=== PATIENT | female | born 1955 | race Hispanic/Latino ===

== ENCOUNTER 2018-05-07 12:40 | Emergency (ER) | payer MEDICAID ==
--- NOTE | 2018-05-07 14:09 | Emergency Department Report ---
ED General Adult HPI - General Chief complaint: Medical Clearance Stated complaint: G TUBE REPLACEMENT Time Seen by Provider: 05/07/18 13:04 Source: patient, EMS (ems notes not available at time of chart dictation), RN notes reviewed, old records reviewed Mode of arrival: Stretcher Limitations: Other (patient is a poor historian.) - History of Present Illness Initial comments: This is a 62-year-old female, presenting from a local [facility] to have a feeding tube replaced. As per discussion with [facility] staff, feeding tube placed either in leads 2015, or early 2016. No other documented complaints have been noted. Patient is demented and is a poor historian. She can therefore not describe exacerbating or relieving factors, radiation, or the qualitative nature of her symptoms. -: unknown Severity scale (0 -10): 0 Quality: other (per hpi) Consistency: other (per hpi) Improves with: other (per hpi) Worsens with: other (per hpi) Associated Symptoms: other (per hpi) - Related Data Allergies Allergy/AdvReac Type Severity Reaction Status Date / Time No Known Allergies Allergy Verified 05/07/18 13:06 ED Review of Systems ROS: Stated complaint: G TUBE REPLACEMENT Other details as noted in HPI Comment: Unobtainable due to pts medical conditions ED Past Medical Hx - Past Medical History Previous Medical History?: Yes Hx Psychiatric Treatment: Yes (Depression, anxiety) Hx Dementia: Yes Additional medical history: Monosymptomatic hypochondriacal psychosis. Parkinson's. chronic pain. Cognitive Dysfunction - Surgical History Past Surgical History?: Yes Additional Surgical History: PEG tube - Social History Smoking Status: Unknown if ever smoked Substance Use Type: Other ED Physical Exam - General Limitations: Other (patient is demented, and is a poor historian) General appearance: in no apparent distress - Eye Eye exam: Present: normal appearance, EOMI - ENT ENT exam: Present: normal exam, normal orophraynx, normal external ear exam - Neck Neck exam: Present: normal inspection, full ROM - Respiratory Respiratory exam: Present: normal lung sounds bilaterally. Absent: respiratory distress, wheezes, rales, rhonchi, stridor, chest wall tenderness, accessory muscle use, decreased breath sounds, prolonged expiratory - Cardiovascular Cardiovascular Exam: Present: regular rate, normal rhythm, normal heart sounds. Absent: bradycardia, tachycardia, irregular rhythm, systolic murmur, diastolic murmur, rubs, gallop - GI/Abdominal GI/Abdominal exam: Present: soft, normal bowel sounds, other (in the left upper quadrant, there is a stoma noted, with no redness, pus or streaking). Absent: distended, tenderness, guarding, rebound, rigid, pulsatile mass - Extremities Exam Extremities exam: Present: normal inspection, full ROM, normal capillary refill , other (2+ pulses noted in the bilateral upper, lower extremities). Absent: calf tenderness - Back Exam Back exam: Present: normal inspection, full ROM. Absent: paraspinal tenderness , vertebral tenderness - Neurological Exam Neurological exam: Present: alert, other (patient is demented. There is no facial droop. Moves 4 extremities spontaneously. Speaks in full sentences. Sensation intact to light touch in 4 extremities.) ED Course Vital Signs 05/07/18 05/07/18 05/07/18 12:55 13:00 13:07 Temperature 98.5 F Pulse Rate 69 Respiratory 18 Rate Blood Pressure 122/76 104/72 122/76 O2 Sat by Pulse 94 98 Oximetry 05/07/18 05/07/18 13:22 14:00 Temperature Pulse Rate Respiratory 18 Rate Blood Pressure 104/72 O2 Sat by Pulse 98 96 Oximetry - Procedure Description Procedures done: In typical aseptic fashion, the left upper quadrant skin stoma is cleansed with Betadine and then dried. An 18 [place] 6 mm feeding tube is inserted, and the balloon is insufflated with 10 mL of sterile saline. A postprocedure x-ray demonstrates appropriate placement with no obvious extravasation, and the patient tolerated the procedure well. ED Medical Decision Making - Lab Data Vital Signs 05/07/18 05/07/18 05/07/18 12:55 13:00 13:07 Temperature 98.5 F Pulse Rate 69 Respiratory 18 Rate Blood Pressure 122/76 104/72 122/76 O2 Sat by Pulse 94 98 Oximetry 05/07/18 05/07/18 13:22 14:00 Temperature Pulse Rate Respiratory 18 Rate Blood Pressure 104/72 O2 Sat by Pulse 98 96 Oximetry - Radiology Data Radiology results: report reviewed, image reviewed Post feeding tube placement x-ray demonstrates appropriate placement of the feeding tube with no obvious contrast extravasation - Medical Decision Making Differential diagnosis, including but not limited to: Feeding tube replacement, encounter for feeding tube replacement Assessment and plan: 62-year-old female who was sent here for feeding tube replacement. The feeding tube was replaced with 1 attempt, confirmed radiographically, and has no obvious complications. The patient is resting comfortably in her stretcher now, and no distress, and the remainder of her physical exam is unremarkable. She is suitable to be discharged at this time with routine outpatient and GI follow-up. The tube is suitable to be used. Critical care attestation.: If time is entered above; I have spent that time in minutes in the direct care of this critically ill patient, excluding procedure time. ED Disposition Clinical Impression: Complication of feeding tube Disposition: [id number]/TX-[id number] ANOTHER TYPE [facility] Is pt being admited?: No Does the pt Need Aspirin: No Condition: Good Additional Instructions: Continue current outpatient medications. Follow-up with a primary care doctor or glass polisher within the next month. The feeding tube may be used without hindrance at this time. Please return to the ER right away with fevers , chills, lethargy, irritability, projectile vomiting, change in mental status, confusion, inability to tolerate liquid feeds. Referrals: [facility]IMARY [facility] [Primary Care Provider] - 3-5 Days [facility] [Provider Group] - 3-5 Days
--- NOTE | 2018-05-07 14:53 | XRay Report ---
X-RAY G-TUBE STUDY History: G-tube replacement. Findings: Sales Merchandiser film of the abdomen demonstrated PEG tube in the epigastric region. The bowel gas pattern is unremarkable. A second image was obtained following injection of oral contrast into the PEG tube. The oral contrast outlines a normal appearing distal stomach and duodenum. No evidence for obstruction or extravasation. Impression: The PEG tube terminates in the stomach. No evidence for obstruction or extravasation.
[2018-05-07 15:44] VITALS: BP 116/76
== END 2018-05-07 17:22 | disposition other institution (70) ==
LOC: ED 12:40
DX: Z43.1 Encounter for attention to gastrostomy (principal)
CPT/HCPCS: 43760; 74018; 99283; Q9963